=== PATIENT | male | born 1990 | race Asian ===

== ENCOUNTER 2019-01-10 07:13 | Emergency (ER) | payer OTHER ==
[~2019-01-10] VITALS: Ht 172.7 cm; Wt 81.7 kg
[2019-01-10 07:54] LABS: ABSOLUTE NEUTROPHILS 4.8 thou/uL (1.4-8.2); EOSINOPHILS 0.6 % (0.0-3.0); HEMATOCRIT 46.6 % (42.0-52.0); HEMOGLOBIN 16.1 gm/dL (14.0-18.0); LYMPHOCYTES 29.8 % (24.0-44.0); MCH 30.9 pg (26.0-34.0); MCHC 34.7 g/dL (28.0-37.0); MCV 89.1 fL (80.0-100.0); MONOCYTES 8.2 % (1.0-8.0); PLATELET COUNT 339 thou/uL (150-400); POLYS 60.4 % (36.0-66.0); RBC 5.23 mil/uL (4.50-6.00); RDW 12.9 % (10.5-14.5)
[2019-01-10 08:05] LABS: ANION GAP 12 mmol/L (7-16); BUN 13 mg/dL (7-18); CALCIUM 9.7 mg/dL (8.5-10.1); CHLORIDE 99 mmol/L (98-107); CO2 26 mmol/L (21-32); CREATININE 1.2 mg/dL (0.7-1.3); GLUCOSE 117 mg/dL (74-106); POTASSIUM 3.5 mmol/L (3.5-5.1); SODIUM 137 mmol/L (136-145)
[2019-01-10 08:08] LABS: APTT 33.1 Seconds (24.5-32.8); INR 1.1; PROTIME 11.3 Seconds (9.3-11.4)
[2019-01-10 08:10] LABS: AMP/METHAMP POSITIVE (Negative); BARBITURATES Negative (Negative); BENZODIAZEPINES Negative (Negative); COCAINE Negative (Negative); METHADONE Negative (Negative); OPIATES Negative (Negative); PCP Negative (Negative)
[2019-01-10 08:13] LABS: ALBUMIN 4.5 g/dL (3.4-5.0); MAGNESIUM 1.9 mg/dL (1.8-2.4); SGOT 17 U/L (15-37); SGPT 26 U/L (30-65); TOTAL BILIRUBIN 0.9 mg/dL (<0.1-1.0); TOTAL PROTEIN 8.8 g/dL (6.4-8.2); TROPONIN-I <0.06 ng/mL (<0.06)
[2019-01-10] MEDS ORDERED: ATIVAN0.5 MG PO (08:20)
[2019-01-10 08:46] VITALS: BP 126/78
--- NOTE | 2019-01-10 10:30 | EKG ---
[address] [place] [address] ELECTROCARDIOGRAM REPORT Name: ARABELLA FRENCH Room #: DEP [facility]ITALFelisha#: [id number] ������������������ Admission: 01/10/19 ������������������ Attend Phys: Discharge: 01/10/19 ������������������ Date of : 88 Report #: [id number] ����������������������������������������������������������������� [id number] THIS REPORT FOR: //name// [facility] ED Test Date: 2019-01-10 Test Time: 07:25:00 Pat Name: ARABELLA JOHNSON Department: Room: Gender: M Child Psychiatrist: MIRANDA : 1990 Requested By: Junito Ni Order Number: [id number] MD: Jaspreet Burrows Measurements Intervals [place] Rate: 98 P: 50 [place]: 136 QRS: 20 QRSD: 89 T: 29 QT: 328 QTc: 419 Interpretive Statements Sinus rhythm Normal tracing No previous ECG available for comparison Electronically Signed On 01-10-2019 10:29:53 CDT by Jaspreet Burrows [email or web address] ��������������������������������������������� <ELECTRONICALLY SIGNED> ���������������������������������������� By: Jaspreet Burrows MD, [facility] ��������������������������������������������� 01/10/19 1029 0725 4 Jaspreet Burrosw MD, FACC /EPI
== END 2019-01-10 09:12 | disposition home or self-care (01) ==
LOC: ER 07:13
PROVIDERS: Emergency Medicine
DX: F15.10 Other stimulant abuse, uncomplicated (principal); R00.0 Tachycardia, unspecified